=== PATIENT | female | born 1975 | race Caucasian/White ===

== ENCOUNTER 2018-12-15 05:48 | Day surgery (SDC) | payer BC ==
[2018-12-13 15:17] VITALS: Ht 157.5 cm; Wt 72.5 kg
[~2018-12-15] VITALS: Ht 157.5 cm; Wt 72.5 kg
[2018-12-15] VITALS (15 sets, daily range): BP systolic 95–133; BP diastolic 64–86; PULSE 54–103; RESP 15–32
--- NOTE | 2018-12-15 07:16 | PREAC ---
Date/Time of Note Date/Time of Note DATE: 12/15/18 TIME: 07:12 Anesthesia Eval and Record Evaluation Time Pre-Procedure Interview DATE: 12/15/18 TIME: 07:12 Age 43 Sex female NPO: 8 hrs Preoperative diagnosis Nephrolithiasis Planned procedure Right Extracorporeal Shockwave Lithotripsy, Cystoscopy, Insertion of Right Ureteral JJ Stent Past Medical History Past Medical History: None Surgery & Anesthesia Issues No known issue Meds Anticoagulation: No Beta Eran within 24 hr: No Reason Beta Eran not given: Pt. not on B-Eran Meds reviewed: Yes Allergies Coded Allergies: No Known Allergy (Unverified , 12/13/18) Allergies Reviewed: Yes Labs/Studies Labs Reviewed: Reviewed by anesthesiologist test: Negative Pre-procedure Exam Last vitals Vital Signs Date Temp Pulse Resp B/P (MAP) Pulse Ox O2 O2 Flow FiO2 Time Delivery Rate 12/15/18 98.8 84 25 119/72 98 Room Air 06:00 (88) Airway: Adequate mouth opening, Adequate thyromental dist Mallampati: Mallampati II Teeth: Normal Lung: Normal Heart: Normal ASA Physical Status ASA physical status: 1 Emergency: None Planned Anesthetic General/MAC: ETT Planned Pain Management Parenteral pain med Pre-operative Attestations Prior to commencing anesthesia and surgery, the patient was re-evaluated, there was verification of: *The patient's identity *The results of appropriate recent lab work and preoperative vital signs *The above evaluation not changing prior to induction *Anesthetic plan, risk benefits, alternative and complications discussed with patient/family; questions answered; patient/family understands, accepts and wishes to proceed. ELOY ROBB MD Dec 15, 2018 07:16
[2018-12-15] MEDS ORDERED: CEFAZOLIN 1 GM INJ ONE (07:20)
[2018-12-15] MEDS ORDERED: NEOSTIGMINE 3 MG/3 ML SYRINGE ONE (07:20)
[2018-12-15] MEDS ORDERED: PROPOFOL 200 MG INJ ONE (07:20)
[2018-12-15] MEDS ORDERED: ROCURONIUM 50 MG INJ ONE (07:20)
[2018-12-15] MEDS ORDERED: GLYCOPYRROLATE 0.4 MG INJ ONE (07:20)
[2018-12-15] MEDS ORDERED: LIDOCAINE 2% (SDV) 5 ML INJ ONE (07:20)
[2018-12-15] MEDS ORDERED: SUCCINYLCHOLINE CHLORIDE 100 MG/5 ML SYG IV ONE (07:20)
[2018-12-15] MEDS ORDERED: ONDANSETRON 4 MG INJ ONE (07:24)
[2018-12-15] MEDS ORDERED: FENTAnyl 50 MCG/ML VIAL ONE (07:24)
[2018-12-15] MEDS ORDERED: MIDAZOLAM 1 MG/ML 2 ML INJ ONE (07:24)
[2018-12-15] MEDS ORDERED: DEXAMETHASONE 4 MG/ML 5 ML INJ ONE (07:24)
[2018-12-15] MEDS ORDERED: FAMOTIDINE 20 MG INJ ONE (07:25)
[2018-12-15] MEDS ORDERED: HALOPERIDOL 5 MG INJ IV PRN (08:00)
[2018-12-15] MEDS ORDERED: HYDROmorphONE 1 MG/5 ML IV SYRINGE IV PRN (08:00)
[2018-12-15] MEDS ORDERED: ONDANSETRON 4 MG INJ IV PRN ×2 (08:00→09:00)
[2018-12-15] MEDS ORDERED: FENTAnyl 50 MCG/ML VIAL IV PRN ×2 (08:00)
[2018-12-15] MEDS ORDERED: MEPERIDINE 25 MG INJ IV PRN (08:00)
[2018-12-15] MEDS ORDERED: OXYCODONE/ACETAMINOPHEN (5/325) TAB PO PRN ×2 (08:00)
[2018-12-15] MEDS ORDERED: HYDROCODONE/APAP (5/325) TAB PO PRN (09:00)
--- NOTE | 2018-12-15 09:02 | PAC ---
Date/Time of Note Date/Time of Note DATE: 12/15/18 TIME: 09:01 Post-Anesthesia Notes Post-Anesthesia Note Last documented vital signs BP 120/71 Sp)2 99%, HR 100 RR 16 T 97.8 Vital Signs Date Temp Pulse Resp B/P (MAP) Pulse Ox O2 O2 Flow FiO2 Time Delivery Rate 12/15/18 98.8 84 25 119/72 98 Room Air 06:00 (88) Activity: WNL Respiratory function: WNL Cardiovascular function: WNL Mental status: Baseline Pain reasonably controlled: Yes Hydration appropriate: Yes Nausea/Vomiting absent: Yes ELOY ROBB MD Dec 15, 2018 09:02
--- NOTE | 2018-12-15 09:06 | OPR ---
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 The timeout was done and the patient was identified by her name, birthdate, the procedure and the site of the procedure. The genital area was prepped and draped in the usual sterile manner. #21 Maldivian cystoscope was introduced into the bladder and urine was collected for culture and sensitivity. The right ureteral orifice was then identified and cannulated with a 5 Maldivian open ended ureteral catheter. A 0.035 zip wire was then passed through the open ended all the way up to the kidney. The open ended was then removed and a 6 Maldivian by 22 cm long JJ stent was advanced on the zip wire. I had its proximal curl into the kidney and the distal end curling into the bladder. Then the patient was positioned in the supine position and the stones in the right kidney were visualized and the shockwave lithotripsy was given to the 3 stones that were close to the JJ stent. These appear to be breaking very well. The energy was started at 2.5 kV up to 7 kV. The total shockwaves that were given 2400. The position of the stones were checked regularly every 100-200 shockwaves. The patient tolerated the procedure well and was transferred to the recovery room in a stable and satisfactory condition ALLAN PETTY MD Dec 15, 2018 09:05
[2018-12-15] MEDS: HYDROmorphONE 1 MG/5 ML IV SYRINGE IV PRN ×2 (09:15→09:29)
--- NOTE | 2018-12-15 14:12 | RADRPT ---
Vent Rate: 71 bpm RR Interval: 844 msec SC Interval: 147 msec QRS Duration: 80 msec QT Interval: 383 msec QTC Interval: 417 msec P-R-T [place]ley: 41 - 26 - 29 degrees Sinus rhythm...normal P axis, V-rate 50- 99 Electronically Signed By: Anjum Thornton
== END 2018-12-15 10:40 | disposition home or self-care (01) ==
LOC: SDS 05:48 → EDSEX 05:48 → SDS 10:40
PROVIDERS: ATTEND Urology
DX: N20.0 Calculus of kidney (principal)
CPT/HCPCS: 50590; 52332; 71045; 80053; 85025; 85610; 85730; 87086; 93005; C2617; J1100; J1170; J2175; J2250; J2405; J3010; Z7512; Z7610; J0690; J2710